=== PATIENT | female | born 1960 | race Caucasian/White ===

== ENCOUNTER 2024-09-28 10:57 | Emergency (ER) | payer MEDICARE, SELFPAY ==
--- NOTE | ~2024-09-28 | XR_ITS ---
EXAMINATION: XR CHEST 2 VIEWS HISTORY: Pain COMPARISON: There are no prior studies for comparison. FINDINGS: PA and lateral views of the chest are submitted. The lungs are expanded and clear. There is no pleural effusion, pneumothorax, or pulmonary vascular congestion. The heart is normal in size. A screw is noted in the proximal right humerus. XR/XR chest 2V IMPRESSION: Clear lungs. Electronically signed by: Pacheco Baker MD 09/28/2024 12:06 PM MARTINA
--- NOTE | 2024-09-28 11:00 | ECG_ITS ---
Test Reason : syncope Blood Pressure : */* mmHG Vent. Rate : 81 BPM Atrial Rate : 81 BPM P-R Int : 156 ms QRS Dur : 90 ms QT Int : 378 ms P-R-T Axes : 63 37 27 degrees QTcB Int : 439 ms Normal sinus rhythm Possible Left atrial enlargement Borderline ECG No previous ECGs available Referred By: Kaleb Way Electronically Signed By: STEPHANIE MOORE
[2024-09-28 11:02] VITALS: BP 167/97; PULSE 96; RESP 18; TEMP 36.7; O2SAT 98; BMI 23.0
--- NOTE | 2024-09-28 11:02 | ED_ITS ---
HPI - General Adult General Chief complaint: Dizziness Stated complaint: Chest pain, low sodium level Time Seen by Provider: 09/28/24 15:56 History of Present Illness ED Provider: Gabby DAS narrative: The patient is a 64-year-old woman who says that starting this morning at around 5 or 06:00 when she got up she has been having episodes of left-sided chest pain. She has also had episodes of feeling dizzy. These symptoms are intermittent. The episodes of chest pain are very brief, in the order of seconds. The feelings of dizziness last longer, possibly several minutes. The patient had similar symptoms for which she was seen at an emergency room in [place] about a month ago. The patient lives in [place] but also has a house in [place] and spends a lot of time in [facility]. Her primary care is through the [facility]. She has a history of hypertension and elevated cholesterol for which he takes medications. She is not a diabetic and she has no history of smoking. The patient has been under a lot of stress recently. Her several months ago and she has been settling the state. She is also looking after her elderly parents both of whom are in her late 80s. She is planning to go to [place] tomorrow to settle part of her estate. The patient reports that she has been sleeping very poorly and often feeling very anxious. She has been under a lot of stress as a result of her 's and also in looking after her elderly parents. Related Data Allergies Allergy/AdvReac Type Severity Reaction Status Date / Time No Known Allergies Allergy Verified 09/28/24 11:05 Review of Systems 2 Review of Systems: Yes all other systems are reviewed and are negative [facility] Social History Social History Smoked in Last 30 Days: No Use of substances other than those prescribed or required for medical reasons: No Advance Directives: No Advance Directives Information Provided: No Physical Exam ED Vital Signs: Vital Signs - 24 hr 09/28/24 11:02 09/28/24 15:37 09/28/24 17:27 Temperature 98.1 F 97.9 F 96.8 F Pulse Rate 96 83 73 Respiratory Rate 18 16 16 Blood Pressure 167/97 H 154/91 H 142/88 H Pulse Oximetry 98 100 98 Oxygen Delivery Method Room Air Room Air Room Air 09/28/24 17:47 Temperature 96.8 F Pulse Rate 73 Respiratory Rate 16 Blood Pressure 142/88 H Pulse Oximetry 98 Oxygen Delivery Method Room Air BMI result Body Mass Index 23.0 Const Other: The patient is a 64-year-old woman who was awake and alert and does not appear in any distress. She looks as though she is ordinarily in quite good health. HENMT Other: Face is symmetrical. Mucous membranes moist. Eyes General: appearance normal, both eyes and all related structures Neck Neck: Yes full ROM and Yes no JVD Resp Effort & Inspection: normal respiratory effort Auscultation: clear to auscultation bilaterally Cardio Rate: regular rate Rhythm: regular rhythm Heart sounds: S1 normal heart sound present and S2 normal heart sound present GI Other: Abdomen is soft and nontender Skin Other: Skin is pale and dry Neuro Other: The patient is awake, alert, pleasant, cooperative. Mental status is normal. Cranial nerves are intact. She moves her extremities normally and appropriately. She is neurologically intact. Extrem Other: No calf swelling or tenderness. No peripheral edema. Course Course Course Narrative: Patient complains of left-sided chest pain waxing and waning starting this morning accompanied by a feeling of lightheaded and dizziness with some nausea EKG labs ordered This is rapid medical exam done in triage pending full exam evaluation and disposition by ER provider Medical Decision Making Medical Decision Making MDM Narrative: The patient is a 64-year-old woman who has fairly nonspecific chest symptoms today as well as dizziness. She apparently had similar symptoms for which she was evaluated at an emergency room in [place] about a month ago. She has a nonischemic EKG. Troponins are undetectable. She describes being under a great deal of stress and describes multiple personal stressors. She is concerned about flying to [place] tomorrow. I think she is safe to fly to [place] tomorrow. She will be discharged. Lab Data 09/28/24 11:27 09/28/24 11:27 Labs: Lab Results 09/28/24 09/28/24 09/28/24 Range/Units 11:27 15:33 16:09 WBC 6.6 (4.8-10.8) X10*3/uL RBC 4.21 (4.20-5.50) X10*6/uL Hgb 12.8 (12.0-16.0) g/dl Hct 37.6 (37.0-47.0) % MCV 89.3 (80.0-98.0) fL MCH 30.4 (27.0-33.0) pg MCHC 34.0 (31.0-35.0) g/dl RDW 13.2 (11.0-16.0) % Plt Count 326 (160-400) X10*3/uL MPV 8.9 L (9.4-12.3) fL Immature Gran % (Auto) 0.5 H (0.0-0.4) % Neut % (Auto) 71.4 (45-73) % Lymph % (Auto) 21.7 (20-40) % [place] % (Auto) 5.6 (2-11) % Eos % (Auto) 0.3 (0-4) % Baso % (Auto) 0.5 (0-2) % Lymph # (Auto) 1.4 (1.2-4.9) X10*3/uL [place] # (Auto) 0.4 (0.1-1.2) X10*3/uL Eos # (Auto) 0.0 (0.0-0.4) X10*3/uL Baso # (Auto) 0.0 (0.0-0.2) X10*3/uL Abs Immat Gran (auto) 0.03 (0.00-0.03) X10*3/uL Absolute Neuts (auto) 4.7 (2.0-8.3) x10*3/uL Absolute Nucleated RBC 0.000 (0.0-0.012) X10*3/uL Nucleated RBC % (auto) 0.0 (0.0-0.2) /100WBC PT 10.2 L (10.9-12.4) SEC INR 0.9 (0.9-1.1) Sodium 133 L (135-145) mmol/L Potassium 4.0 (3.3-5.1) mmol/L Chloride 99 (96-108) mmol/L Carbon Dioxide 28 (22-29) mmol/L Anion Gap 10 L (12-20) BUN 8 L (9-16) mg/dL Creatinine 0.61 (0.5-1.4) mg/dL Estim Creat Clear Calc 72.7 Estimated GFR > 60 Random Glucose 116 H (60-115) mg/dL Calcium 9.3 (8.4-10.2) mg/dL Total Bilirubin 0.3 (0.0-1.0) mg/dL Direct Bilirubin 0.1 (0.0-0.5) mg/dL AST 24 (5-31) U/L ALT 16 (0-31) U/L Alkaline Phosphatase 55 (39-117) U/L Troponin I High Sens < 2.7 < 2.7 (<3.5-17.0) ng/L Total Protein 7.4 (6.5-8.0) g/dL Albumin 4.1 (3.5-5.0) g/dL Influenza Type A (PCR) NEGATIVE (Negative) Influenza Type B (PCR) NEGATIVE (Negative) RSV RNA Qual (PCR) NEGATIVE (Negative) SARS-CoV-2 RNA (RT-PCR) NEGATIVE (Negative) Independent Interpretation I performed an independent interpretation of an: EKG Interpretation: EKG at 11:21 shows normal sinus rhythm at 81 beats per minute. No definite acute ischemic changes. Discharge Plan Discharge Clinical Impression: Chest pain, Dizziness Patient Disposition: Home, Self-Care Additional Instructions: Your testing in the emergency room today is very reassuring. Your sodium level today was 133. The normal range is 135-145. 133 is not significantly low and should not be a cause of concern. You were not showing any evidence of a heart attack or the morning of a heart attack. I believe it is safe for you to travel to [place]. Please plan on following up with your regular doctor's office when you return. Get checked again if you feel significantly worse. Referrals: Tracee Chao FNP [Primary Care Provider] - (Chest pains, dizziness) Interventions: ED Discharge Assessment Last Done: 09/28/24 17:47 Discharge Date/Time: 09/28/24 17:48 Print Language: Welsh
[2024-09-28 11:34] LABS: MANUAL DIFF FLAG NO
[2024-09-28 11:37] LABS: Basophils Percent Auto 0.5 % (0-2); Eosinophils Percent Auto 0.3 % (0-4); Hematocrit 37.6 % (37.0-47.0); Hemoglobin 12.8 g/dl (12.0-16.0); Imm Gran Abs Auto 0.03 X10*3/uL (0.00-0.03); Imm Gran Pct Auto 0.5 % (0.0-0.4); Lymphocytes Absolute Auto 1.4 X10*3/uL (1.2-4.9); Lymphocytes Percent Auto 21.7 % (20-40); Mean Corpuscular Hemoglobin 30.4 pg (27.0-33.0); Mean Corpuscular Volume 89.3 fL (80.0-98.0); Mean Platelet Volume 8.9 fL (9.4-12.3); Monocytes Absolute Auto 0.4 X10*3/uL (0.1-1.2); Monocytes Percent Auto 5.6 % (2-11); Neutrophils Absolute Auto 4.7 x10*3/uL (2.0-8.3); Neutrophils Percent Auto 71.4 % (45-73); Platelet Count 326 X10*3/uL (160-400); Red Blood Count 4.21 X10*6/uL (4.20-5.50); Red Cell Distribution Width 13.2 % (11.0-16.0); White Blood Count 6.6 X10*3/uL (4.8-10.8)
[2024-09-28 11:41] LABS: INTERNATIONAL NORM RATIO 0.9 (0.9-1.1); Prothrombin Time 10.2 SEC (10.9-12.4)
[2024-09-28 12:00] LABS: Alanine Aminotransferase 16 U/L (0-31); Albumin Level 4.1 g/dL (3.5-5.0); Anion Gap 10 (12-20); Aspartate Amino Transferase 24 U/L (5-31); Bilirubin Direct 0.1 mg/dL (0.0-0.5); Bilirubin Total 0.3 mg/dL (0.0-1.0); Blood Urea Nitrogen 8 mg/dL (9-16); Calcium 9.3 mg/dL (8.4-10.2); Carbon Dioxide 28 mmol/L (22-29); Chloride 99 mmol/L (96-108); Creatinine Clr Calc Pharmacy 72.7; Estimated Glomerular Filt Rate > 60; Glucose Random 116 mg/dL (60-115); Sodium 133 mmol/L (135-145); Total Protein 7.4 g/dL (6.5-8.0)
[2024-09-28 12:11] LABS: Alkaline Phosphatase 55 U/L (39-117)
[2024-09-28 14:55] LABS: Troponin-I High Sensitivity < 2.7 ng/L (<3.5-17.0)
[2024-09-28 15:37] VITALS: BP 154/91; PULSE 83; RESP 16; TEMP 36.6; O2SAT 100
--- OUTSIDE RECORDS SUMMARY | 2024-09-28 15:39 | XMS_ITS | Encounter Summary ---
Author Organization [facility] Address [phone] [facility] [place] [address] Care Team Providers Care Geological Scout Name Role Phone Chandni Roger MD Primary Care Provider [phone]- [phone] Encounter Details Date Type Department Care Team (Late st Contact Info) Description 09/07/2022 Procedure Pass [facility], [address] [address] Social History Tobacco Use Types Packs/Day Years Used Date Smoking Tobacco: Never Smokeless Tobacco: Never Alcohol Use Standard Drinks/Week Comments Yes 1 (1 standard drink = 0.6 oz pur e alcohol) daily Sex and Gender Information Value Date Recorded Sex Assigned at Not on file Gender Identity Not on file Sexual Orientation Not on file documented as of this encounter Plan of Treatment Not on file documented as of this encounter Visit Diagnoses Not on filedocumented in this encounter Care Teams Geological Scout Relationship Specialty Start Date End Date Chandni Roger MD PCP - General Family Medicine 03/03/20 documented as of this encounter Additional Source Comments The information contained in this document represents components of the legal health record. It is not the complete legal health record.[facility]
--- OUTSIDE RECORDS SUMMARY | 2024-09-28 15:39 | XMS_ITS | Encounter Summary ---
Author Organization [facility] Address [phone] [facility] [place] [address] Care Team Providers Care Plush Finisher Name Role Phone Chandni Roger MD Primary Care Provider [phone]- [phone] Encounter Details Date Type Department Care Team (Latest Contact Info) Description 09/21/2024 Transcribe Orders Virtual Department [address] [place] [address] Tracee Chao, [address] [address] Screening for osteoporosis (Primary Dx) Social History Tobacco Use Types Packs/Day Years Used Date Smoking Tobacco: Never Smokeless Tobacco: Never Alcohol Use Standard Drinks/Week Comments Yes 1 (1 standard drink = 0.6 oz pur e alcohol) daily Education Answer Date Recorded Are you interested in more education? Not on chapinc[place] e 12/23/2022 Are you concerned about learning? Not on file 12/23/2022 No 12/23/2022 No 12/23/2022 Digital Access Answer Date Recorded No 01/24/2023 No 01/24/2023 No 01/24/2023 Reliable internet access at home? Not on file 01/24/2023 Device with a working camera? Not on file Sex and Gender Information Value Date Recorded Sex Assigned at Not on file Gender Identity Not on file Sexual Orientation Not on file documented as of this encounter Plan of Treatment Scheduled Orders Name Type Priority Associated Diagnoses Orde r Schedule DXA Screening Imaging Routine Screening for osteoporosis Expected: 09/21/2024, Expires: 09/21/2026 documented as of this encounter Visit Diagnoses Diagnosis Screening for osteoporosis- Primary Special screening for osteoporosis documented in this encounter Care Teams Plush Finisher Relationship Specialty Start Date End Date Chandni Roger MD [email or web address] PCP - General Family Medicine 03/03/20 documented as of this encounter Additional Source Comments The information contained in this document represents components of the legal health record. It is not the complete legal health record.[facility]
--- OUTSIDE RECORDS SUMMARY | 2024-09-28 15:39 | XMS_ITS | Encounter Summary ---
Author Organization [facility] Address [phone] [facility] [place] [address] Care Team Providers Care Solo Truck Driver Name Role Phone Chandni Roger MD Primary Care Provider [phone]- [phone] Encounter Details Date Type Department Care Team (Latest Contact Info) Description 09/07/2022 Transcribe Orders Virtual Department [address] [place] [address] Julienne Johnson PA-C [address] [place] [address] [email or web address] Breast screening (Primary Dx) Social History Tobacco Use Types [...] on file documented as of this encounter Results * BI MAMMOGRAM SCREENING WITH TOMOSYNTHESIS WITH CAD (BILATERAL) (10/01/2022 4:26 PM EST) Anatomical Region Laterality Modality Breast Left, Breast Right, Breast Bilateral Bila teral Mammography 10/04/2022 2:37 PM EST Impressions 10/04/2022 3:33 PM EST BILATERAL BREASTS: Benign, no evidence of malignancy. Recommend bilateral annual screening mammography in 12 months. Bi-RADS: BI-RADS CATEGORY: ??2 - Benign finding. DENSITY: ??There are scattered fibroglandular densities. RIGHT RECOMMENDATION DUE DATE: 12 Months Recommendation: Right Mammography Screening LEFT RECOMMENDATION DUE DATE: 12 Months Recommendation: ??Left Mammography Screening Narrative 10/04/2022 3:33 PM EST STUDY: Bilateral screening mammography with tomosynthesis and CAD TECHNIQUE: Bilateral full-field digital screening mammography is obtained and read in conjunction with computer-aided detection. ??Tomosynthesis as well as 2-D C view imaging were obtained. ?? COMPARISON: Comparison made to multiple prior studies dating back to June 2009, the most recent dated February 2020. BILATERAL BREASTS: No new masses, suspicious calcifications or other abnormalities are seen. No significant interval change. Procedure Note Rebecca Ayala MD - 10/04/2022 STUDY: Bilateral screening mammography with tomosynthesis and CAD TECHNIQUE: Bilateral full-field digital screening mammography is obtainedand read in conjunction with computer-aided detection. Tomosynthesis aswell as 2-D C view imaging were obtained. COMPARISON: Comparison made to multiple prior studies dating back 2008, the most recent dated February 2020. BILATERAL BREASTS: No new masses, suspicious calcifications or otherabnormalities are seen. No significant interval change. IMPRESSION: BILATERAL BREASTS: Benign, no evidence of malignancy. Recommend bilateralannual screening mammography in 12 months. Bi-RADS: BI-RADS CATEGORY: 2 - Benign finding. DENSITY: There are scattered fibroglandular densities. RIGHT RECOMMENDATION DUE DATE: 12 Months Recommendation: Right Mammography Screening LEFT RECOMMENDATION DUE DATE: 12 Months Recommendation: Left Mammography Screening Julienne Johnson PA-C [facility] EXAMS documented in this encounter Visit Diagnoses Diagnosis Breast screening- Primary Breast screening, unspecified Breast screening Breast screening, unspecified documented in this encounter Care Teams Solo Truck Driver Relationship Specialty Start Date End Date Chandni Roger MD [email or web address] PCP - General Family Medicine 03/03/20 documented as of this encounter Additional Source Comments The information contained in this document represents components of the legal health record. It is not the complete legal health record.[facility]
--- OUTSIDE RECORDS SUMMARY | 2024-09-28 15:39 | XMS_ITS | Encounter Summary ---
Author Organization [facility] Address [phone] [facility] [place] [address] Care Team Providers Care Endoscopy Technician Name Role Phone Chandni Rgoer MD Primary Care Provider +1- [phone] Encounter Details Date Type Department Care Team ([facility] st Contact Info) Description 08/07/2021 Transcribe Orders Virtual Department [address] [place] [address] [facility] [address] [place] [address] Palpitations (Primary Dx) Social History Tobacco Use Types [...] as of this encounter Visit Diagnoses Diagnosis Palpitations- Primary documented in this encounter Care Teams Endoscopy Technician Relationship Specialty Start Date End Date Chandni Roger MD PCP - General Family Medicine 03/03/20 documented as of this encounter Additional Source Comments The information contained in this document represents components of the legal health record. It is not the complete legal health record.[facility]
--- OUTSIDE RECORDS SUMMARY | 2024-09-28 15:40 | XMS_ITS | Encounter Summary ---
Author Organization [facility] Address [phone] [facility] [employer] [place] [address] Care Team Providers Care Account Receivable Clerk Name Role Phone Chandni Roger MD Primary Care Provider +1- [phone] Chandni Roger MD Primary Care Provider +1- [phone] Encounter Details Date Type Department Care Team (Late st Contact Info) Description 04/16/2019 Ancillary Orders Virtual Department [address] [place] [address] Radha Bowser, [address] [address] [email or web address] Visit for screening mammogram Social History Tobacco Use Types Packs/Day Years Used Date Smoking Tobacco: Never Sex and Gender Information Value Date Recorded Sex Assigned at Not on file Gender Identity Not on file Sexual Orientation Not on file documented as of this encounter Plan of Treatment Not on file documented as of this encounter Results * BI MAMMOGRAM SCREENING WITH TOMOSYNTHESIS WITH CAD (BILATERAL) (03/11/2020 3:10 PM EDT) Anatomical Region Laterality Modality Breast Left, Breast Right, Breast Bilateral Bila teral Mammography 03/11/2020 4:02 PM EDT Impressions 03/11/2020 4:08 PM EDT No mammographic evidence of malignancy. ??In the absence of clinically significant findings routine annual screening mammography would be recommended. BI-RADS CATEGORY: 2 - Benign finding. DENSITY: ??There are scattered fibroglandular densities. POS - [id number] Narrative 03/11/2020 4:08 PM EDT Standard digital full-field 2-D C view and two-plane tomographic imaging was performed and compared with multiple prior studies, most recently 02/18/2017, with utilization of computer-aided detection. The breasts are composed of scattered fibroglandular densities. The stromal markings are essentially unchanged in overall appearance and distribution. No dominant spiculated mass, suspicious clustered microcalcifications, or focal zone of pathologic skin thickening or retraction are noted to have arisen in the interim. Scattered benign-appearing parenchymal and vascular calcifications are present bilaterally. Procedure Note Blanca Vega MD - 03/11/2020 Standard digital full-field 2-D C view and two-plane tomographic imagingwas performed and compared with multiple prior studies, most qcmdhaoj03/23/2017, with utilization of computer-aided detection. The breasts are composed of scattered fibroglandular densities. Thestromal markings are essentially unchanged in overall appearance anddistribution. No dominant spiculated mass, suspicious clusteredmicrocalcifications, or focal zone of pathologic skin thickening orretraction are noted to have arisen in the interim. Scatteredbenign-appearing parenchymal and vascular calcifications are presentbilaterally. IMPRESSION: No mammographic evidence of malignancy. In the absence of clinicallysignificant findings routine annual screening mammography would berecommended. BI-RADS CATEGORY: 2 - Benign finding. DENSITY: There are scattered fibroglandular densities. POS - [id number] Radha Bowser [facility] IMG MG EXAMS documented in this encounter Visit Diagnoses Diagnosis Visit for screening mammogram Visit for screening mammogram documented in this encounter Care Teams Account Receivable Clerk Relationship Specialty Start Date End Date Chandni Roger MD PCP - General 01/02/15 03/02/20 Chandni Roger MD [email or web address] PCP - General Family Medicine 03/03/20 documented as of this encounter Additional Source Comments The information contained in this document represents components of the legal health record. It is not the complete legal health record.[facility]
--- OUTSIDE RECORDS SUMMARY | 2024-09-28 15:40 | XMS_ITS | Encounter Summary ---
Author Organization [facility] Address [address] [place] [address] Care Team Providers Care Refrigeration Repair Supervisor Name Role Phone No, Pcp Primary Care Provider Unavailabl e Reason for Visit * Reason Comments Chest Pain Encounter Details Date Type Department Care Team (Late st Contact Info) Description 09/08/2024 5:46 PM EST - 09/08/2024 8:23 PM EST Emergency [facility] [address] [place] [address] Walter Lewis MD [address] [place] [address] 1st Floor [place] [address] Chest pain, unspecified type (Primary Dx) Discharge Disposition: Home or Self Care Social History Tobacco Use Types Packs/Day Years Used Date Smoking Tobacco: Never Assessed Comments Unknown Sex and Gender Information Value Date Recorded Sex Assigned at Not on file Legal Sex Female 3:01 PM EST Gender Identity Not on file Sexual Orientation Not on file documented as of this encounter Last Filed Vital Signs Vital Sign Reading Time Taken Comments Blood Pressure 156/78 09/08/2024 7:43 PM EST Pulse 85 09/08/2024 7:43 PM EST Temperature 36.2 ??C (97.1 ??F) 09/08/2024 7:43 PM ES T Respiratory Rate 16 09/08/2024 7:43 PM EST Oxygen Saturation 98% 09/08/2024 7:43 PM EST Inhaled Oxygen Concentration - - Weight - - Height - - Body Mass Index - - documented in this encounter Discharge Instructions * Discharge Instructions* NILE Viveros - 09/08/2024 7:52 PM EST Is unclear what is causing your chest pain today. Your testing was negative. If you develop return of chest pain or have difficulty breathing or other concerning symptoms return to the emergency department otherwise follow-up with your primary care doctor. * Attachments The following attachments cannot be sent through Care Everywhere. * Nonspecific Chest Pain Adult [id number] (Peruvian) documented in this encounter ED Notes Only the most recent of 3 notes is shown. * Alka Valencia - 09/08/2024 7:30 PM EST Report given to LAZARA Valencia 09/08/241929 documented in this encounter Plan of Treatment Not on file documented as of this encounter Procedures Procedure Name Priority Date/Time Associated Diagnosis Comments HS-TNI (2 HR WITH 2 HR DELTA) STAT 09/08/2024 7:09 PM EST D DIMER DEEP VEIN THROMB LEVEL STAT 09/08/2024 6:32 PM EST HS-TROPONIN I STAT 09/08/2024 3:21 PM EST MAGNESIUM LEVEL, BLOOD STAT 09/08/2024 3:21 PM EST BASIC METABOLIC PANEL STAT 09/08/2024 3:21 PM EST CBC WITH DIFF STAT 09/08/2024 3:21 PM EST PHOSPHORUS LEVEL STAT 09/08/2024 3:21 PM EST ECG 12-LEAD STAT 09/08/2024 1:02 PM EST documented in this encounter Results * hs-TNI (2 hr with 2 hr DELTA) (09/08/2024 7:09 PM EST) [facility] hs-TNI 2 hr <3 3 - 14 ng/L 09/08/2024 7:49 PM EST [facility] Blood 09/08/2024 7:09 PM EST 09/08/2024 7:16 PM EST us Minesh DOWD LAB BLOOD ORDERABLES Final Result [facility] [address] [place] [address] [place] [address] * D DIMER DEEP VEIN THROMB LEVEL (09/08/2024 6:32 PM EST) [facility] D Dimer Deep Vein Thromb Level 153 0 - 325 ng/mL D-DU 09/08/2024 7:34 PM [facility] Comment: This test has been validated as being useful in the exclusion of venous thromboembolism (VTE). A cutoff value of 230 ng/ml is suggested. Results below this cutoff can be used in conjunction with clinical evaluation, such as the Wells Score, in assessing the need for further investigation for VTE. Plasma D-dimer levels are known to increase with age. Patients over 50 years can be considered for VTE/PE exclusion if their measured D-dimer result is less than their chronological age multiplied by 5, expressed in ng/mL. For example, a 72 year old patient could be considered for VTE/PE exclusion if the D-dimer result is less than 360 ng/mL (72 x 5 = 360). Blood 09/08/2024 6:32 PM EST 09/08/2024 7:16 PM EST us Minesh DOWD LAB BLOOD ORDERABLES Final Result [facility] [address] [place] [id number] [place] [address] [place] [id number] * Phosphorus Level (09/08/2024 3:21 PM EST) Phosphorus 2.7 2.4 - 4.8 MG/DL 09/08/2024 4:06 PM EST [facility] Blood 09/08/2024 3:21 PM EST 09/08/2024 3:38 PM EST us Walter Lewis MD LAB BLOOD ORDERABLES Final Result Performing Organization Address City/[facility]/ZIP Co de Phone Number [facility] [address] [place] [address] [place] [address] * Magnesium Level, Blood (09/08/2024 3:21 PM EST) Magnesium Level, Blood 1.7 1.3 - 1.9 mEq/L 09/08/2024 4:06 PM EST [facility] Blood 09/08/2024 3:2 1 PM EST 09/08/2024 3:38 PM EST us Walter Lewis MD LAB BLOOD ORDERABLES Final Result Performing Organization Address [facility]/RUST Co de Phone Number [facility] [address] [place] [address] [place] [address] * hs-Troponin I (09/08/2024 3:21 PM EST) hs-Troponin I <3 3 - 14 ng/L 09/08/2024 4:11 PM EST [facility] 09/08/2024 3:21 PM EST 09/08/2024 3:38 PM EST us Walter Lewis MD LAB BLOOD ORDERABLES Final Result Performing Organization Address City/[facility]/ZIP Co de Phone Number [facility] [address] [place] [address] [place] [address] * (ABNORMAL) CBC WITH DIFF (09/08/2024 3:21 PM EST) WBC 6.6 4.2 - 10.0 [id number]/L 09/08/2024 3:50 PM [facility] RBC 4.23 3.80 - 5.10 [id number]/L 09/08/2024 3:50 PM [facility] Hemoglobin 12.8 11.2 - 14.9 g/dL 09/08/2024 3:50 PM [facility] Hematocrit 37.8 36.0 - 48.0 % 09/08/2024 3:50 PM [facility] MCV 89.4 85.2 - 100.2 fL 09/08/2024 3:50 PM [facility] MCH 30.3 27.0 - 32.4 pg 09/08/2024 3:50 PM [facility] MCHC 33.9 29.5 - 34.2 g/dL 09/08/2024 3:50 PM [facility] RDW 13.1 11.8 - 14.4 % 09/08/2024 3:50 PM [facility] Platelets 328 168 - 382 r40waq9/L 09/08/2024 3:50 PM [facility] MPV 9.0(L) 9.6 - 12.5 fL 09/08/2024 3:50 PM [facility] NRBC % 0.0 -1.0 - 0.0 % 09/08/2024 3:50 PM [facility] NRBC (absolute) 0.0 [id number]/L 3:50 PM [facility] Immature Granulocytes % 0.3 % 09/08/2024 3:50 PM [facility] Immature Granulocytes (absolute) 0.0 0.0 - 0.1 b23xjr2/L 09/08/2024 3:50 PM [facility] Seg Neutrophil % 58.1 % 09/08/19 3:50 PM [facility] Seg Neutrophil (absolute) 3.8 1.9 - 6.7 a95trp3/L 09/08/2024 3:50 PM [facility] Lymphocyte % 35.2 % 09/08/2024 3:50 PM [facility] Lymphocyte (absolute) 2.3 1.0 - 3.3 u90vjv2/L 09/08/2024 3:50 PM [facility] Monocyte % 5.5 % 09/08/2024 3:50 PM [facility] Monocyte (absolute) 0.4 0.3 - 0.9 v10fzv0/L 09/08/2024 3:50 PM [facility] Eosinophil % 0.6 % 09/08/2024 3:50 PM [facility] Eosinophil (absolute) 0.0 0.0 - 0.4 z95fci2/L 09/08/2024 3:50 PM [facility] Basophil % 0.3 % 09/08/2024 3:50 PM [facility] Basophil (absolute) 0.0 0.0 - 0.1 l55rpt0/L 09/08/2024 3:50 PM [facility] 09/08/2024 3:21 PM EST 09/08/2024 3:38 PM EST us Walter Lewis MD LAB BLOOD ORDERABLES Final Result [facility] [address] Laboratory [address] [place] [address] * (ABNORMAL) Basic Metabolic Panel (09/08/2024 3:21 PM EST) Glucose 112(H) 67 - 99 MG/DL 09/08/2024 4:06 PM [facility] BUN 10 6 - 24 MG/DL 09/08/2024 4:06 PM [facility] Creat Level 0.53 0.44 - 1.03 MG/DL 09/08/2024 4:06 PM [facility] eGFR 102 >90 mL/min/1.7 3m exp2 09/08/2024 4:06 PM [facility] Comment:Calculated using the CKD-epi 2020 race-free equation. BUN Creatinine Ratio 19 09/08/2024 4:06 PM [facility] Sodium 129(L) 135 - 145 MEQ/L 09/08/2024 4:06 PM [facility] Potassium 4.0 3.6 - 5.1 MEQ/L 09/08/2024 4:06 PM [facility] Chloride 97(L) 98 - 110 MEQ/L 09/08/2024 4:06 PM [facility] CO2 23 20 - 29 MEQ/L 09/08/2024 4:06 PM [facility] Anion Gap 9 3 - 13 09/08/2024 4:06 PM [facility] Calcium 9.1 8.4 - 10.2 MG/DL 09/08/2024 4:06 PM [facility] Blood 09/08/2024 3:21 PM EST 09/08/2024 3:38 PM EST Walter Lewis MD LAB BLOOD ORDERABLES Final Result Performing Organization Address City/State/RUST Co de Phone Number [facility] [address] [place] [address] [place] [address] * ECG 12 Lead (09/08/2024 1:02 PM EST) RR Interval 652 ms [facility] Atrial Rate 93 ms [facility] P-R Interval 157 ms [facility] P Duration 123 ms [facility] P Horizontal [place] -14 deg [facility] P Front [place] 67 deg [facility] QRS [place] 503 ms [facility] QRSD Interval 106 ms [facility] QT Interval 372 ms [facility] QTcB 461 ms [facility] QTcF 429 ms [facility] QRS Horizontal [place] -10 deg [facility] QRS [place] 62 deg [facility] I-40 Horizontal [place] 25 deg [facility] I-40 Front [place] 19 deg [facility] C[facility] T-40 Horizontal [place] -34 deg [facility] T-40 Front [place] 122 deg [facility] C[facility] T Horizontal [place] -20 deg [facility] T Wave [place] 20 deg [facility] S-T Horizontal [place] -39 deg [facility] S-T Front [place] 57 deg [facility] ECG Impression - ABNORMAL ECG - [facility] 09/08/2024 Impressions [facility] - 09/11/2024 1:25 AM EST SR Sinus rhythm normal P axis, V-rate 50-99 T1AN Nonspecific T abnormalities, anterior leads T <-0.10mV, V2-V4 Narrative Procedure Note Monica Yun MD - 09/11/2024 SR Sinus rhythm normal P axis, V-rate 50-99 T1AN Nonspecific T abnormalities, anterior leads T <-0.10mV, V2-V4 us Order Ed Protocol ECG ORDERABLES Edited Result - Final [facility] documented in this encounter Visit Diagnoses Diagnosis Chest pain, unspecified type- Primary documented in this encounter Administered Medications Inactive Administered Medications - up to 3 most recent administrations Medication Order MAR Action Action Date Dose Rate Site lactated ringers bolus 1,000 mL 1,000 mL, Intravenous, Administer over 30 Minutes, at 2,000 mL/hr, Once, On 09/08/24 at 1530, 1 dose New Bag 09/08/2024 7:10 PM EST 1,000 mL 200 0 mL/hr sodium chloride flush 3 mL 3 mL, intra-catheter, As needed, line care, Starting on 09/08/24 at 1517, Until 09/09/24 at 0223 documented in this encounter Active and Recently Administered Medications Times are shown in EST. Scheduled Medication Order 09/06/2024 09/07/2024 09/08/2024 lactated ringers bolus 1,000 mL (COMPLETED) 1,000 mL, Intravenous, Administer over 30 Minutes, at 2,000 mL/hr, Once, On 09/08/24 at 1530, 1 dose 1910 (New Bag - Prov ider: Alka Valencia)2015 (Stopped - Provider: Audrey Duran RN) ondansetron (ZOFRAN) injection 4 mg 4 mg, Intravenous, Once, On 09/08/24 at 1530, 1 dose, For IM use, administer undiluted; for IV push, undiluted over 2 to 5 minutes; for IV infusion, dilute and administer over 15 to 30 minutes. 2014 (Not Given - Pr ovider: Audrey Duran RN - Reason: Patient refused ordered dose) PRN Medication Order 09/06/2024 09/07/2024 09/08/2024 sodium chloride flush 3 mL(Linked Group 1) 3 mL, intra-catheter, As needed, line care, Starting on 09/08/24 at 1517, Until 09/09/24 at 0223 Linked Groups Order Group 1: Insert peripheral IV (COMPLETED) STAT, Once, On 09/08/24 at 1518, For 1 occurrence And Maintain IV access (CANCELED) STAT, Until discontinued, Starting on 09/08/24 at 1518, Until Specified And Saline lock IV (CANCELED) STAT, Once, On 09/08/24 at 1518, For 1 occurrence, INT once pt tolerating PO and with adequate urine output (300cc q8 hours minimum) And sodium chloride flush 3 mLJump to med 3 mL, intra-catheter, As needed, line care, Starting on 09/08/24 at 1517, Until 09/09/24 at 0223 documented in this encounter Care Teams Refrigeration Repair Supervisor Relationship Specialty Start Date End Date No, MD Pricila No Address No [place] [address] PCP - General Internal Medicine 09/08/24 documented as of this encounter
--- OUTSIDE RECORDS SUMMARY | 2024-09-28 15:40 | XMS_ITS | Encounter Summary ---
Author Organization [employer] Address [address] [place] [address] 7 [place] [address] Care Team Providers Care Director Of Music Therapy Name Role Phone Julienne Johnson PA-C Primary Care Provider Unav ailable Reason for Visit * Reason Onset Date Comments Med Refill 04/19/2023 Encounter Details Date Type Department Care Team ([facility] st Contact Info) Description 04/19/2023 Refill Car[facility] [address] [place] [address] [facility] [address] [place] [address] Essential (primary) hypertension Social History Tobacco Use Types Packs/Day Years Used Date Smoking Tobacco: Never Smokeless Tobacco: Never Alcohol Use Standard Drinks/Week Comments Not Asked 0 (1 standard drink = 0.6 oz pur e alcohol) Wine 1 Comments Unknown Sex and Gender Information Value Date Recorded Sex Assigned at Female 09/02/2022 8:53 AM EST Legal Sex Female 8:35 PM EDT Gender Identity Female 09/02/2022 8:53 AM EST Sexual Orientation Straight 09/22/2022 1: 26 PM EST documented as of this encounter Plan of Treatment Not on file documented as of this encounter Visit Diagnoses Diagnosis Essential (primary) hypertension Unspecified essential hypertension documented in this encounter Care Teams Director Of Music Therapy Relationship Specialty Start Date End Date Julienne Johnson PA-C PCP - General Family Medicine 09/03/22 documented as of this encounter
--- OUTSIDE RECORDS SUMMARY | 2024-09-28 15:40 | XMS_ITS | Encounter Summary ---
Author Organization [facility] Address [phone] [facility] [employer] [place] [address] Care Team Providers Care Drain Cleaner Name Role Phone Chandni Roger MD Primary Care Provider [phone] Chandni Roger MD Unavailable [phone] Chandni Roger MD Primary Care Provider Encounter Details Date Type Department Care Team (Late st Contact Info) Description 04/07/2018 Ancillary Orders Virtual Department [address] [place] [address] Annette Ponce, SQL BI DEVELOPER [address] [place] [address] Breast screening Social History Tobacco Use Types Packs/Day Years Used Date Smoking Tobacco: Never Sex and Gender Information Value Date Recorded Sex Assigned at Not on file Gender Identity Not on file Sexual Orientation Not on file documented as of this encounter Plan of Treatment Not on file documented as of this encounter Visit Diagnoses Diagnosis Breast screening Breast screening, unspecified documented in this encounter Care Teams Drain Cleaner Relationship Specialty Start Date End Date Chandni Roger MD PCP - General 01/02/15 03/02/20 Chandni Roger MD [email or web address] PCP - General Family Medicine 03/03/20 Chandni Roger MD [address] [place] [phone] [email or web address] Insurance Assigned Provider 12/30/18 03/03/19 documented as of this encounter Additional Source Comments The information contained in this document represents components of the legal health record. It is not the complete legal health record.[facility]
--- OUTSIDE RECORDS SUMMARY | 2024-09-28 15:41 | XMS_ITS | Encounter Summary ---
Author Organization [employer] Address [address] [place] [address] 7 [place] [address] Care Team Providers Care Web Consultant Name Role Phone Julienne Johnson PA-C Primary Care Provider Unav ailable Reason for Visit * Reason Onset Date Comments pain in left side chest area 09/28/2024 Nausea 09/28/2024 Dizziness 09/28/2024 Encounter Details Date Type Department Care Team ([facility] st Contact Info) Description 09/28/2024 Telephone [facility] MEDICAL [address] [place] [id number] Julienne Johnson PA-C pain in left side chest area; Nausea; Dizziness Social History Tobacco Use Types Packs/Day Years Used Date Smoking Tobacco: Never Smokeless Tobacco: Never Alcohol Use Standard Drinks/Week Comments Not Asked 0 (1 standard drink = 0.6 oz pure alcohol) Wine, a couple of glasses a week Depression Answer Date Recorded Patient Health Questionnaire-9 Score 2 12/30/2023 Patient Health Questionnaire-9 Score 2 12/30/2023 Last PHQ-9: Questionnaire Data Not on file 0 12/30/2023 Housing Stability Answer Date Recorded What is your housing situation today? I have lopez foster 09/21/[address] you li ve. Do you have problems with any of the following? None of the above 09/21/2024 Food Insecurity Answer Date Recorded Within the past 12 months, y ou worried that your food would run out before you got money to buy more: Never True 09/21/2024 Within the past 12 months,th e food you bought just didn't last and you didn't have enough money to get more: Never True Transportation Answer Date Recorded In the past 12 months, has l ack of transportation kept you from medical appts, meetings, work or from getting things needed for daily living? No 09/21/2024 Utilities Answer Date Recorded In the past 12 months, has t he electric, gas, oil or water company threatened to shut off services in your home? No 09/21/2024 Depression Answer Date Recorded Patient Health Questionnaire-2 Score 0 09/21/2024 Internet Access Answer Date Recorded Internet Access Q1 Yes 09/21/2024 Internet Access Q2 Not on file 09/21/2024 Comments Unknown Sex and Gender Information Value Date Recorded Sex Assigned at Female 09/02/2022 8:53 AM EST Legal Sex Female 8:35 PM EDT Gender Identity Female 09/02/2022 8:53 AM EST Sexual Orientation Straight 09/22/2022 1: 26 PM EST documented as of this encounter Miscellaneous Notes * Telephone Encounter - Soco Milligan RN - 09/28/2024 10:28 AM EST Placed call to patient who reports that since about 05:00 today 09/28 she has been having shooting pain on the lateral side of her left breast. It has been occurring every 20 minutes, and lasts for about one second at a time. Patient also reports that she is not feeling well- nauseous, SOB, lightheaded. Advised ED for immediate evaluation, patient in agreement. She is on her way to [facility]. To records. * Telephone Encounter - Kirsty East - 09/28/2024 10:09 AM EST Patient called. Patient had her labs done today but is not feeling well Patient reports Nausea Lightheaded Shooting pain on left side chest area documented in this encounter Plan of Treatment Not on file documented as of this encounter Visit Diagnoses Not on filedocumented in this encounter Additional Health Concerns Assessment Noted Time PHQ-9 Depression Total Score: 2 12/30/19 24 12:57 PM EDT documented as of this encounter Care Teams Web Consultant Relationship Specialty Start Date End Date Julienne Johnson PA-C PCP - General Family Medicine 09/03/22 documented as of this encounter
--- OUTSIDE RECORDS SUMMARY | 2024-09-28 15:41 | XMS_ITS | Encounter Summary ---
Author Organization [employer] Address [address] [place] [address] [address] [place] [address] Care Team Providers Care Administrative Specialist Name Role Phone Julienne Johnson PA-C Primary Care Provider Unav ailable Encounter Details Date Type Department Care Team (Late st Contact Info) Description 12/23/2023 Orders Only [facility] MEDICAL [address] [place] [id number] Julienne Johnson PA-C Right hip pain Social History Tobacco Use Types Packs/Day Years [...] Procedure Name Priority Date/Time Associated Diagnosis Comments XR HIP RIGHT 2+ VIEWS W AP PELVIS Routine 09/06/2023 10:41 AM EST AMB REFERRAL TO ORTHOPAEDICS Routine 09/06/2023 Right hip pain documented in this encounter Results * XR HIP RIGHT 2+ VIEWS W AP PELVIS (09/06/2023 10:41 AM EST) Anatomical Region Laterality Modality Lower Extremities, Hip Bilateral Radiograp hic Imaging Julienne Johnson PA-C IMG XR PROCEDURES Final Res ult * Referral to Orthopaedics (09/06/2023) us Julienne Johnson PA-C OUTPATIENT REFERRAL ORDERAB LES Final Result documented in this encounter Visit Diagnoses Diagnosis Right hip pain Pain in joint, pelvic region and thigh documented in this encounter Care Teams Administrative Specialist Relationship Specialty Start Date End Date Julienne Johnson PA-C PCP - General Family Medicine 09/03/22 documented as of this encounter
--- OUTSIDE RECORDS SUMMARY | 2024-09-28 15:41 | XMS_ITS | Referral Summary ---
Author Organization [facility] Address [address] [place] [address] Care Team Providers Care Apigee Developer Name Role Phone Angela Gallegos Primary Care Provider [phone] Allergies No known active allergies Medications dilTIAZem CD (CARDIZEM CD) 180 mg 24 hr capsule Take 180 mg by mouth once a day. 1 Active lisinopriL (PRINIVIL,ZESTR IL) 10 mg tablet Take 10 mg by mouth daily. Active simvastatin (ZOCOR) 20 mg tablet 20 mg. 1 Active polyethylene glycol (GoLYTELY) solutionIndicat ions:Colon cancer screening Take according to instructions provided by physician. 4000 mL 2 Active meloxicam (MOBIC) 15 mg tablet Take 1 tablet (15 mg total) by mouth once a day. 60 tablet 1 4 Active diclofenac (VOLTAREN) 1% gel Apply 4 g topically to the affected area 4 times a day as needed (for lateral hip pain). Use as directed. 100 g 1 4 Active Active Problems Problem Noted Date Diagnosed Date Personal history of colon cancer 09/21/2021 Personal history of colon cancer 09/21/2021 Social History Tobacco Use Types Packs/Day Years Used Date Smoking Tobacco: Never Smokeless Tobacco: Never Alcohol Use Standard Drinks/Week Comments Yes 0 (1 standard drink = 0.6 oz pur e alcohol) Social Comments No Sex and Gender Information Value Date Recorded Sex Assigned at Female 09/04/2023 7:26 PM EST Legal Sex Female 11:49 AM EST Gender Identity Female 09/04/2023 7:26 PM EST Sexual Orientation Straight 09/04/2023 7: 26 PM EST Occupation Industry Job Start Date Job End Date [employer]IVE [employer] Not on file Not on file No t on file Last Filed Vital Signs Vital Sign Reading Time Taken Comments Blood Pressure 150/90 01/05/2023 2:45 PM EDT Pulse 72 01/05/2023 2:30 PM EDT Temperature 36.7 ??C (98.1 ??F) 01/05/2023 2:30 PM ED T Respiratory Rate 16 01/05/2023 2:45 PM EDT Oxygen Saturation 98% 01/05/2023 2:45 PM EDT Inhaled Oxygen Concentration - - Weight 70.1 kg (154 lb 9.6 oz) 09/06/2023 9:22 A M EST Height 157.5 cm (5' 2 ) 09/06/2023 9:22 AM EST Body Mass Index 28.28 09/06/2023 9:22 AM EST Plan of Treatment Not on file Procedures * Due to [place] [employer] law, this organization might not be sharing negative HIV tests. Procedure Name Priority Date/Time Associated Diagnosis Comments COLONOSCOPY 01/05/2023 from Last 3 Months or Most Recently Relevant to Health Maintenance Results * Due to [place] [employer] law, this organization might not be sharing negative HIV tests. * COLONOSCOPY (01/05/2023) Narrative Procedure Note Jerardo Corrigan MD PhD - 01/05/2023 1:47 PM EDT [facility] - [address] [facility] Patient Name: Moon Pierre Procedure Date: 01/05/2023 1:47 PM Date of : 1960 Admit Type: Outpatient Age: 62 Room: [facility] 01 Gender: Female Note Status: Addendum Attending MD: Anjum Corrigan MD Procedure: Colonoscopy Indications: High risk colon cancer surveillance: Personal history of coloncancer Providers: Anjum Corrigan MD Referring MD: Requesting Provider: Angela Gallegos Medicines: Propofol per Anesthesia Complications: No immediate complications. Procedure: After I obtained informed consent, the scope was passed under direct vision. Throughout theprocedure, the patient's blood pressure, pulse, and oxygen saturations were monitored continuously. The Colonoscope was introduced through the anus and advanced to the cecum, identified by appendiceal orifice and ileocecal valve. The colonoscopy was performed without difficulty. The patient tolerated the procedure well. The quality of the bowel preparation was good. Findings: Multiple small and large-mouthed diverticula were found in the entire colon. Three sessile polyps were found in the rectum, sigmoid colon and ascending colon. The polyps were 3 to 10 mm in size. The exam was otherwise normal throughout the examined colon. Impression: - Three 3 to 10 mm polyps in the rectum, in the sigmoid colon and in the ascending colon. - No specimens collected. Recommendation: - Dr. Norman will telephone with pathology results next tuesday. - Repeat colonoscopy in 3 years for surveillance. Anjum Corrigan MD 01/05/2023 2:27:27 PM This report has been signed electronically. Number of Addenda: 1 Note Initiated On: 01/05/2023 1:47 PM Estimated Blood Loss: Estimated blood loss: none. Addendum Number: 1 Addendum Date: 01/10/2023 12:12:03 PM polyps were removed by cold snare. excision and retrieval werecomplete Anjum Corrigan MD 01/10/2023 12:12:30 PM This report has been signed electronically. us Jerardo Corrigan MD PhD [employer] PROCEDURES Final Result from Last 3 Months or Most Recently Relevant to Health Maintenance Insurance [employer] PPO/EPO/IND Care Teams Apigee Developer Relationship Specialty Start Date End Date Frederic, [place] PCP - General 09/21/21
--- OUTSIDE RECORDS SUMMARY | 2024-09-28 15:41 | XMS_ITS | Encounter Summary ---
Author Organization [employer] Address [address] [place] [address] Care Team Providers Care Dowel Maker Name Role Phone Julienne Johnson PA-C Primary Care Provider Unav ailable Reason for Referral * Imaging (Routine) - Pending Review Specialty Diagnoses / Procedures Referred By Fredy ewing Referred To Contact Radiology Diagnoses Screening for osteoporosis Procedures XR bone density w SPECT lumbar Tracee Chao FNP [address] [place] [address] Phone: tel: fax: [facility] [address] Phone: tel: fax: Referral ID Status Reason Start Date Expiration Date V isits Requested Visits Authorized [id number] Pending Review 09/21/2024 09/21/2025 1 1 Reason for Visit * Reason Comments Welcome To Medicare Pt here today for th eir annual Medicare wellness visit Encounter Details Date Type Department Care Team (Late st Contact Info) Description 09/21/2024 9:00 AM EST Office Visit [facility] [address] [place] [address] Tracee Chao FNP [address] [place] [address] Medicare annual wellness visit, initial (Primary Dx); Supraventricular tachycardia (CMS/HCC); 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; Screening for osteoporosis; Primary hypertension; History of colon cancer; Mixed hyperlipidemia; Anxiety; Prediabetes Social History Tobacco Use Types Packs/Day Years [...] PM EST documented as of this encounter Last Filed Vital Signs Vital Sign Reading Time Taken Comments Blood Pressure 110/70 09/21/2024 9:03 AM EST Pulse 80 09/21/2024 9:03 AM EST Temperature 36.6 ??C (97.8 ??F) 09/21/2024 9:03 AM ES T Respiratory Rate 16 09/21/2024 9:03 AM EST Oxygen Saturation - - Inhaled Oxygen Concentration - - Weight 54.8 kg (120 lb 12.8 oz) 09/21/2024 9:03 AM EST Height 158.4 cm (5' 2.38 ) 09/21/2024 9:03 AM ES T Body Mass Index 21.83 09/21/2024 9:03 AM EST documented in this encounter Progress Notes * Tracee Zhanna, MARY - 09/21/2024 9:00 AM EST Subjective Moon Pierre is a 64 y.o. female who presents for Initial Welcome to Medicare visit. Chronic condition review: Patient Active Problem List Diagnosis Primary hypertension Hyperlipidemia Supraventricular tachycardia (CMS/HCC) History of colon cancer Anxiety Prediabetes SVT- stable, no reoccurrences, last seen by cardiology many years ago HTN- Well controlled, has had weight loss, taking 20mg lisinopril, looking to decrease HLD: due for cholesterol check, currently stable on simvastatin 20mg without side effects Prediabetes: last A1c this summer 5.9%, well controlled with dietary and lifestyle changes, limiting carb intake, weight loss, increasing exercise Anxiety: experiences situational anxiety, well controlled without medication at this time History of colon cancer: last colonoscopy 2022, on 3 year plan, next due 2025, no symptoms at this time Health Maintenance Topic Date Due Mammogram 10/01/2024 Influenza Vaccine (1) 08/27/2025 (Originally 04/29/2024) Pneumococcal Vaccine: 65+ Years (1 of 1 - PCV) 09/21/2025 (Originally 2024) Zoster Vaccines (2 of 2) 09/21/2025 (Originally 07/19/2020) COVID-19 Vaccine (5 - 2023- season) 2025 (Originally 04/29/2024) Diabetes: Hemoglobin A1C 03/06/2025 Depression Screening 09/21/2025 Tobacco Screening 09/21/2025 SDOH Screening 09/21/2025 Alcohol/Substance Use Screening 09/21/2025 Cervical Cancer Screening 09/03/2027 Lipid Panel 03/06/2029 DTaP/Tdap/Td Vaccines (2 - Td or Tdap) 04/13/2029 RSV Patients and Patients Aged 60 years or older (1 - 1-dose 75+ series) 2034 Hepatitis C Screening Completed RSV under 20 months Aged Out HIB Vaccines Aged Out Hepatitis B Vaccines Aged Out IPV Vaccines Aged Out Hepatitis A Vaccines Aged Out Meningococcal Vaccine Aged Out Rotavirus Vaccines Aged Out HPV Vaccines Aged Out Colorectal Cancer Screening Discontinued Current Outpatient Medications Medication Sig Dispense Refill dilTIAZem CD (Cardizem CD) 180 MG 24 hr capsule TAKE 1 CAPSULE BY MOUTH IN THE MORNING 90 capsule 1 simvastatin (Zocor) 20 MG tablet Take 1 tablet (20 mg) by mouth at bedtime. 90 tablet 2 lisinopril 10 MG tablet Take 1 tablet (10 mg) by mouth Once per day. 90 tablet 1 No current facility-administered medications for this visit. PAST MEDICAL, SURGICAL, SOCIAL AND FAMILY HISTORY: Reviewed and updated Family History Problem Relation Name Age of Onset Other (pacemaker) Mother Heart disease Mother Prostate cancer Brother Colon cancer Maternal Grandmother Past Surgical History: Procedure Laterality Date COLECTOMY 2009 Dr. Graves Past Medical History: Diagnosis Date Elevated cholesterol H/O colonoscopy 2016 Dr. Kurtz repeat 5 years HTN (hypertension) Hx of colonoscopy 12/2009 Dr. Kurtz Migraines Supraventricular tachycardia (CMS/HCC) Health Risk Assessment Medicare Annual Wellness Visit Health Risk Assessment Questionnaire completed, scanned into chart. Current specialty providers/suppliers: see scanned documents MiniCog- deferred, no memory concerns at this time Vision Screening Right eye Left eye Both eyes Without correction fail fail fail With correction Comments: Pt has corrective lenses, was seen by her eye 03/2024, states no changes in her prescription. Patient Health Questionnaire-2 Score: 0 Fall Risk: see scanned documents Advanced Care Directives, MOLST, DPOA: completed but not on file, patient will bring in for file ROS: Ten system review negative, with the exception of those noted in the HPI and A&P PHYSICAL EXAMINATION: GENERAL: Well-appearing female in no acute distress. HEENT: No scleral icterus. Moist mucous membranes. No nasal discharge. PULMONARY: Breathing comfortably on room air. CTAB CARDIAC: RRR MUSCULOSKELETAL: Gait appropriate and symmetric. EXTREMITIES: Warm and well perfused. NEUROLOGIC: Motor function grossly intact. ASSESSMENT AND PLAN: Assessment - History of supraventricular tachycardia (SVT) with no recent recurrences, only occasional flutters. - History of colon cancer, currently on a three-year surveillance plan. - Prediabetes with a recent A1C of 5.9 in February 2024. Plan - Reduce lisinopril dosage to 10 mg. Discontinue the current 20 mg dosage and send a new prescription for 10 mg. Monitor blood pressure at home to ensure stability with the new dosage. - Order laboratory tests to assess electrolyte balance and cholesterol levels. These tests will help determine if any adjustments to current medications are necessary. - Schedule a bone density scan to evaluate bone health, particularly focusing on the hips, lower spine, and femoral heads. This will help assess the risk of osteopenia or osteoporosis. - Plan to discuss potential changes to cholesterol medication based on the upcoming lab results. Consideration will be given to the patient's recent weight loss and changes in lifestyle habits. - Ensure the patient receives a follow-up call with the results of the lab tests, including cholesterol levels, to discuss any necessary adjustments or further actions. Prescription - Lisinopril 10 mg, daily Appointments - Bone density scan to be scheduled at [facility] before the end of September 2024. Problem List Items Addressed This Visit Primary hypertension Overview Rx lisinopril, BP at home has been normal 120-130/80-90 Hyperlipidemia Overview Lipid panel 08/2022 wnl. Rx statin Component Ref Range & Units 11 mo ago Cholesterol, Total (<200) MG/DL 195 Triglyceride (mg/dL) in Serum/Plasma (<150) MG/DL 47 HDL Cholesterol (>39) MG/DL 91 LDL Cholesterol, Calculated (0-130) MG/DL 95 Non HDL Chol. (LDL+VLDL) (<160) MG/DL 104 Supraventricular tachycardia (CMS/HCC) Overview Was put on cardizem by cardiology in [place] many years ago. No reoccurrances, comfortable with whatto look out for History of colon cancer Overview Diagnosed 2009 s/p colon resection. No chemo radiation. Last colonoscopy 12/2022 q3y Anxiety Overview Feels very anxious about health, worried about dying. Has strong fam hx of cancer. Does not follow therapist. Recommended services. 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 Relevant Orders Lipid Panel, Standard Comprehensive metabolic panel Screening for osteoporosis Relevant Orders XR bone density w SPECT lumbar Medications Discontinued During This Encounter Medication Reason hydrOXYzine HCl (Atarax) 25 MG tablet Other lisinopril 20 MG tablet lisinopril 10 MG tablet documented in this encounter Plan of Treatment Scheduled Orders Name Type Priority Associated Diagnoses Orde r Schedule XR bone density w SPECT lumbar Imaging Routine Screening for osteoporosis Expected: 09/21/2024 (Approximate), Expires: 09/21/2025 documented as of this encounter Procedures Procedure Name Priority Date/Time Associated Diagnosis Comments LIPID PANEL, STANDARD Routine 09/21/2024 10:02 AM EST correction use of drug COMPREHENSIVE METABOLIC PANEL Routine 09/21/2024 10:02 AM EST 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 documented in this encounter Results * (ABNORMAL) Comprehensive metabolic panel (09/21/2024 10:02 AM EST) Glucose 94 70 - 99 mg/dL [facility] Urea Nitrogen (BUN) 11 8 - 27 mg/dL [facility] Creatinine, Serum 0.61 0.57 - 1.00 mg/dL [facility] 1 eGFR 99 >59 mL/min/1.7 3 [facility] 1 BUN/Creatinine Ratio 18 12 - 28 [facility] 1 Sodium 129(L) 134 - 144 mmol/L [facility] 1 Potassium 5.1 3.5 - 5.2 mmol/L [facility] 1 Chloride 93(L) 96 - 106 mmol/L [facility] 1 Anion Gap 10.0 10.0 - 18.0 mmol/L [facility] 1 Carbon Dioxide 26 20 - 29 mmol/L [facility] 1 Calcium 9.3 8.7 - 10.3 mg/dL [facility] 1 Protein, Total 6.9 6.0 - 8.5 g/dL [facility] 1 Albumin 4.3 3.9 - 4.9 g/dL [facility] 1 Globulin 2.6 1.5 - 4.5 g/dL [facility] 1 Bilirubin, Total 0.3 0.0 - 1.2 mg/dL [facility] 1 Alkaline Phosphatase 62 44 - 121 IU/L [facility] 1 AST 20 0 - 40 IU/L [facility] 1 ALT 19 0 - 32 IU/L [facility] 1 Blood Venous blood specimen / Unknown 09/21/2024 10:02 AM EST 09/21/2024 Narrative [facility] 1 - 09/22/2024 12:05 AM EST Performed at: ??01 - [facility] [address] ??[id number] Coal Pulverizer Operator: Kim Johns MD, Phone: ??[phone] Traceejesús Chao [facility] LAB BLOOD ORDERABLES Erna l Result Performing Organization Address City/[facility] Co de Phone Number [facility] 1 * Lipid Panel, Standard (09/21/2024 10:02 AM EST) Cholesterol, Total 168 100 - 199 mg/dL [facility] 1 Triglycerides 38 0 - 149 mg/dL [facility] 1 HDL Cholesterol 82 >39 mg/dL [facility] 1 VLDL Cholesterol Chet 9 5 - 40 mg/dL [facility] 1 LDL Chol Calc (NIH) 77 0 - 99 mg/dL [facility] 1 Blood Venous blood specimen / Unknown 09/21/2024 10:02 AM EST 09/21/2024 Narrative [facility] 1 - 09/22/2024 12:05 AM EST Performed at: ??01 - [facility] [address] ??[id number] Coal Pulverizer Operator: Kim Johns MD, Phone: ??[phone] Tracee Nunezeddi [facility] LAB BLOOD ORDERABLES Erna l Result Performing Organization Address [facility] Co de Phone Number [facility] 1 documented in this encounter Visit Diagnoses Diagnosis Medicare annual wellness visit, initial- Primary Supraventricular tachycardia (CMS/HCC) Other specified cardiac dysrhythmias correction use of drug Screening for osteoporosis Special screening for osteoporosis Primary hypertension Unspecified essential hypertension History of colon cancer Personal history of malignant neoplasm of large intestine Mixed hyperlipidemia Anxiety Anxiety state, unspecified Prediabetes Other abnormal glucose documented in this encounter Additional Health Concerns Assessment Noted Time PHQ-9 Depression Total Score: 2 12/30/19 24 12:57 PM EDT documented as of this encounter Care Teams Dowel Maker Relationship Specialty Start Date End Date Julienne Johnson PA-C PCP - General Family Medicine 09/03/22 documented as of this encounter
--- OUTSIDE RECORDS SUMMARY | 2024-09-28 15:41 | XMS_ITS | Encounter Summary ---
Author Organization [employer] Address [address] [place] [address] [address] [place] [address] Care Team Providers Care Adon Name Role Phone Julienne Johnson PA-C Primary Care Provider Haresh ailable Encounter Details Date Type Department Care Team (Latest Contact Info) Description 09/21/2024 Travel Social History Tobacco Use Types Packs/Day Years [...] your housing situation today? I have lopez kristin 09/21/[address] you li [...] documented as of this encounter Care Teams Adon Relationship Specialty Start Date End Date Julienne Johnson PA-C PCP - General Family Medicine 09/03/22 documented as of this encounter
--- OUTSIDE RECORDS SUMMARY | 2024-09-28 15:41 | XMS_ITS | Clinical Summary ---
Author Organization [facility] Address [address] [place] [address] Care Team Providers Care Plate Hanger Name Role Phone No, Pcp Primary Care Provider Unavailabl e Allergies No known active allergies Medications No known medications Active Problems No known active problems Encounters Date Type Department Care Team Description 09/08/2024 5:46 PM EST - 09/08/2024 8:23 PM EST Emergency [facility] [address] [place] [address] Walter Lewis MD Chest pain, unspecified type (Primary Dx) Discharge Disposition: Home or Self Care from Last 3 Months Social History Tobacco Use Types Packs/Day Years Used Date Smoking Tobacco: Never Assessed Comments Unknown Sex and Gender Information Value Date Recorded Sex Assigned at Not on file Legal Sex Female 3:01 PM EST Gender Identity Not on file Sexual Orientation Not on file Last Filed Vital Signs Vital [...] - - Body Mass Index - - Plan of Treatment Health Maintenance Due Date Last Done Comments Bone Density (DXA) Scan 1960 COLONOSCOPY (CRC) 2004 COLORECTAL CANCER SCREENING (CRC) 2004 CT COLONOGRAPHY (CRC) 2004 FIT-DNA (CRC) 2004 FIT/iFOBT (CRC) 2004 SIGMOIDOSCOPY (CRC) 2004 ZOSTER VACCINE (2 of 2) 07/19/2020 05/24/2020 MAMMOGRAM 03/11/2022 03/11/2020 PNEUMOCOCCAL VACCINE: 65+ YEARS (1 of 1 - PCV) 2024 INFLUENZA VACCINE (#1) 2024 0, 05/24/2020 COVID-19 IMMUNIZATION ( - season) 2024 12/11/2020, 11/27/2020, 11/18/2020 DTAP/TDAP/TD VACCINES (2 - T d or Tdap) 04/13/2029 04/13/2019, 11/06/2009 RSV IMMUNIZATION (1 - 1-dose 75+ series) 2034 IPV VACCINES Aged Out No longer eligi ble based on patient's age to complete this topic MENINGOCOCCAL B VACCINE Aged Out No l onger eligible based on patient's age to complete this topic Procedures Procedure Name Priority Date/Time Associated Diagnosis Comments HS-TNI (2 HR WITH 2 HR DELTA) STAT 09/08/2024 7:09 PM EST D DIMER DEEP VEIN THROMB LEVEL STAT 09/08/2024 6:32 PM EST PHOSPHORUS LEVEL STAT 09/08/2024 3:21 PM EST MAGNESIUM LEVEL, BLOOD STAT 09/08/2024 3:21 PM EST HS-TROPONIN I STAT 09/08/2024 3:21 PM EST CBC WITH DIFF STAT 09/08/2024 3:21 PM EST BASIC METABOLIC PANEL STAT 09/08/2024 3:21 PM EST ECG 12-LEAD STAT 09/08/2024 1:02 PM EST from Last 3 Months Results * hs-TNI (2 hr with 2 hr DELTA) (09/08/2024 7:09 PM EST) Pathologist [facility] hs-TNI 2 hr <3 3 - 14 ng/L 09/08/2024 7:49 PM EST [facility] Blood 09/08/2024 7:09 PM EST 09/08/2024 7:16 PM EST Minesh DOWD LAB BLOOD ORDERABLES Final Result Performing Organization Address City/[facility]/ZIP Co de Phone Number [facility] [address] [place] [address] [place], [place] [id number] * D DIMER DEEP VEIN THROMB LEVEL (09/08/2024 6:32 PM EST) [facility] D Dimer Deep Vein Thromb Level 153 0 - 325 ng/mL D-DU 09/08/2024 7:34 PM EST [facility] Comment: This test has been validated [...] 6:32 PM EST 09/08/2024 7:16 PM EST Minesh DOWD LAB BLOOD ORDERABLES Final Result [facility] [address] [place] [id number] [facility] [address] [place] [id number] * hs-Troponin I (09/08/2024 3:21 PM EST) [facility] hs-Troponin I <3 3 - 14 ng/L 09/08/2024 4:11 PM [facility] 09/08/2024 3:21 PM EST 09/08/2024 3:38 PM EST us Walter Lewis MD LAB BLOOD ORDERABLES Final Result Performing Organization Address [facility]/ZIP Co de Phone Number [facility] [address] [place] [address] [place] [address] * Magnesium Level, Blood (09/08/2024 3:21 PM EST) Magnesium Level, Blood 1.7 1.3 - 1.9 mEq/L 09/08/2024 4:06 PM [facility] Blood 09/08/2024 3:21 PM EST 09/08/2024 3:38 PM EST us Walter Lewis MD LAB BLOOD ORDERABLES Final Result Performing Organization Address [facility] Co de Phone Number [facility] [address] [place] [address] [place] [address] * (ABNORMAL) Basic Metabolic Panel (09/08/2024 3:21 PM EST) Glucose 112(H) 67 - 99 MG/DL 09/08/2024 4:06 PM [facility] BUN 10 6 - 24 MG/DL 09/08/2024 4:06 PM [facility] Creat Level 0.53 0.44 - 1.03 MG/DL 09/08/2024 4:06 PM [facility] eGFR 102 >90 mL/min/1.7 3m exp2 09/08/2024 4:06 PM [facility] Comment:Calculated using the CKD-epi 2020 race-free equation. BUN Creatinine Ratio 19 09/08/2024 4:06 PM [facility] Sodium 129(L) 135 - 145 MEQ/L 09/08/2024 4:06 PM [facility] Potassium 4.0 3.6 - 5.1 MEQ/L 09/08/2024 4:06 PM [facility] Chloride 97(L) 98 - 110 MEQ/L 09/08/2024 4:06 PM [facility] CO2 23 20 - 29 MEQ/L 09/08/2024 4:06 PM [facility] Anion Gap 9 3 - 13 09/08/2024 4:06 PM [facility] Calcium 9.1 8.4 - 10.2 MG/DL 09/08/2024 4:06 PM [facility] Blood 09/08/2024 3:21 PM EST 09/08/2024 3:38 PM EST Walter Lewis MD LAB BLOOD ORDERABLES Final Result [facility] [address] [place] [address] * (ABNORMAL) CBC WITH DIFF (09/08/2024 3:21 PM EST) WBC 6.6 4.2 - 10.0 [id number]/L 09/08/2024 3:50 PM [facility] RBC 4.23 3.80 - 5.10 [id number]/L 09/08/2024 3:50 PM [facility] Hemoglobin 12.8 11.2 - 14.9 g/dL 09/08/2024 3:50 PM [facility] Hematocrit 37.8 36.0 - 48.0 % 09/08/2024 3:50 PM [facility] MCV 89.4 85.2 - 100.2 fL 09/08/2024 3:50 PM [facility] MCH 30.3 27.0 - 32.4 pg 09/08/2024 3:50 PM [facility] MCHC 33.9 29.5 - 34.2 g/dL 09/08/2024 3:50 PM [facility] RDW 13.1 11.8 - 14.4 % 09/08/2024 3:50 PM [facility] Platelets 328 168 - 382 [id number]/L 09/08/2024 3:50 PM [facility] MPV 9.0(L) 9.6 - 12.5 fL 09/08/2024 3:50 PM [facility] NRBC % 0.0 -1.0 - 0.0 % 09/08/2024 3:50 PM [facility] NRBC (absolute) 0.0 n72hre0/L 3:50 PM [facility] Immature Granulocytes % 0.3 % 09/08/2024 3:50 PM [facility] Immature Granulocytes (absolute) 0.0 0.0 - 0.1 [id number]/L 09/08/2024 3:50 PM [facility] Seg Neutrophil % 58.1 % 09/08/19 3:50 PM [facility] Seg Neutrophil (absolute) 3.8 1.9 - 6.7 [id number]/L 09/08/2024 3:50 PM [facility] Lymphocyte % 35.2 % 09/08/2024 3:50 PM [facility] Lymphocyte (absolute) 2.3 1.0 - 3.3 [id number]/L 09/08/2024 3:50 PM [facility] Monocyte % 5.5 % 09/08/2024 3:50 PM [facility] Monocyte (absolute) 0.4 0.3 - 0.9 [id number]/L 09/08/2024 3:50 PM [facility] Eosinophil % 0.6 % 09/08/2024 3:50 PM [facility] Eosinophil (absolute) 0.0 0.0 - 0.4 [id number]/L 09/08/2024 3:50 PM [facility] Basophil % 0.3 % 09/08/2024 3:50 PM [facility] Basophil (absolute) 0.0 0.0 - 0.1 [id number]/L 09/08/2024 3:50 PM [facility] 09/08/2024 3:21 PM EST 09/08/2024 3:38 PM EST Walter Lewis MD LAB BLOOD ORDERABLES Final Result Performing Organization Address [facility]/ZIP Co de Phone Number [facility] [address] [place] [address] [place] [address] * Phosphorus Level (09/08/2024 3:21 PM EST) Phosphorus 2.7 2.4 - 4.8 MG/DL 09/08/2024 4:06 PM EST [facility] Blood 09/08/2024 3:21 PM EST 09/08/2024 3:38 PM EST Walter Lewis MD LAB BLOOD ORDERABLES Final Result Performing Organization Address [facility] Co de Phone Number [facility] [address] [place] [address] [place] [address] * ECG 12 Lead (09/08/2024 1:02 PM EST) RR Interval 652 ms [facility] Atrial Rate 93 ms [facility] P-R Interval 157 ms [facility] P Duration 123 ms [facility] P Horizontal Reeds -14 deg [facility] P Front Reeds 67 deg [facility] QRS Reeds 503 ms [facility] QRSD Interval 106 ms [facility] QT Interval 372 ms [facility] QTcB 461 ms [facility] QTcF 429 ms [facility] QRS Horizontal Reeds -10 deg [facility] QRS Reeds 62 deg [facility] I-40 Horizontal Reeds 25 deg [facility] I-40 Front Reeds 19 deg [facility] T-40 Horizontal Reeds -34 deg [facility] T-40 Front Reeds 122 deg [facility] T Horizontal Reeds -20 deg [facility] T Wave Reeds 20 deg [facility] S-T Horizontal Reeds -39 deg [facility] S-T Front Reeds 57 deg [facility] ECG Impression [...] Protocol ECG ORDERABLES Edited Result - Final [facility] from Last 3 Months Insurance [address] [place] [id number] [place] [address] [id number] [place] [address] Care Teams Plate Hanger Relationship Specialty Start Date End Date No, MD Pricila No Address No [place] [address] PCP - General Internal Medicine 09/08/24
--- OUTSIDE RECORDS SUMMARY | 2024-09-28 15:41 | XMS_ITS | Encounter Summary ---
Author Organization [facility] [employer] [facility] Address [address] [place] [address] [address] [place] [address] Care Team Providers Care Dobie Worker Name Role Phone Julienne Johnson PA-C Primary Care Provider Unav ailable Encounter Details Date Type Department Care Team (Latest Contact Info) Description 09/19/2024 Travel Social History Tobacco Use Types Packs/Day Years Used Date Smoking Tobacco: Never Smokeless Tobacco: Never Alcohol Use Standard Drinks/Week Comments Not Asked 0 (1 standard drink = 0.6 oz pur e alcohol) Wine 1 Depression Answer Date Recorded Patient Health Questionnaire-9 Score 2 12/30/2023 Patient Health Questionnaire-9 Score 2 12/30/2023 Last PHQ-9: Questionnaire Data Not on file 0 12/30/2023 Depression Answer Date Recorded Patient Health Questionnaire-2 Score 1 12/30/2023 Comments Unknown Sex and Gender Information Value [...] documented as of this encounter Care Teams Dobie Worker Relationship Specialty Start Date End Date Julienne Johnson PA-C PCP - General Family Medicine 09/03/22 documented as of this encounter
--- OUTSIDE RECORDS SUMMARY | 2024-09-28 15:41 | XMS_ITS | Clinical Summary ---
Author Organization [facility] Address [address] [place] [address] Care Team Providers Care Farmworker Vegetable Name Role Phone Angela Gallegos Primary Care Provider [phone] Allergies No known active allergies Medications dilTIAZem [...] 09/21/2021 Personal history of colon cancer 09/21/2021 Family History Relation Name Status Comments Father Alive Mother Alive Social History Tobacco Use Types Packs/Day Years [...] Industry Job Start Date Job End Date [employer] M[employer] Not on file Not [...] 09/06/2023 9:22 AM EST Plan of Treatment Health Maintenance Due Date Last Done Comments Cervical Cancer Screening 1960 HIV Screening 1960 HPV and Pap Smear 1960 Hepatitis C Screening 1960 Pap Smear 1960 Osteoporosis Screening 2009 Zoster Vaccines (2 of 2) 07/19/2020 05/24/2020 Pneumococcal Vaccine: 65+ Years (1 of 1 - PCV) 2024 COVID-19 Vaccine ( - season) 2024 09/27/2021, 12/11/2020, 11/27/2020, Additional history exists Influenza Vaccine (#1) 2024 06/21/2020, 2019 Alcohol/Substance Use Screening 08/29/2024 Depression Screening and Follow-Up 08/29/2024 Health Care Proxy Review 08/29/2024 Social Drivers of Health Annual Screening 08/29/2024 Mammogram 10/01/2024 10/01/2022, 02/0 10/2022, 03/11/2020, Additional history exists Colonoscopy 01/05/2026 01/05/2023, 01/05/2023 DTaP,Tdap,and Td Vaccines (2 - Td or Tdap) 04/13/2029 04/13/2019, 11/06/2009 RSV Vaccine (60+ years old and patients) (1 - 1-dose 75+ series) 2034 Hepatitis B Vaccines Aged Out No long er eligible based on patient's age to complete this topic Procedures * Due to [place] Visual[employer] law, this organization might not be sharing negative HIV tests. Procedure Name Priority Date/Time Associated Diagnosis Comments COLONOSCOPY 01/05/2023 from Last 3 Months or Most Recently Relevant to Health Maintenance Results * Due to [place] [employer] law, this organization might not be sharing negative HIV tests. * COLONOSCOPY (01/05/2023) Narrative Procedure Note Jerardo Corrigan MD PhD - 01/05/2023 1:47 PM EDT [facility] Endoscopy - [address] [place] [address] Patient Name: Moon Pierre Procedure Date: 01/05/2023 1:47 PM Date of : 1960 Admit Type: Outpatient Age: 62 Room: [place] [address] Gender: Female Note Status: Addendum Attending MD: Anjum Corrigan MD Procedure: Colonoscopy Indications: High risk colon cancer surveillance: Personal history of coloncancer Providers: Anjum Corrigan MD Referring MD: Requesting Provider: Anglea Gallegos Medicines: Propofol per Anesthesia Complications: No [...] PM This report has been signed electronically. Jerardo Corrigan MD PhD PROVATION PROCEDURES Final Result from Last 3 Months or Most Recently Relevant [id number] [employer] PPO/EPO/IND Care Teams Farmworker Vegetable Relationship Specialty Start Date End Date [place], [place] PCP - General 09/21/21
--- OUTSIDE RECORDS SUMMARY | 2024-09-28 15:41 | XMS_ITS | Clinical Summary ---
Author Organization [employer] Address [address] [place] [address] 7 [place] [address] Care Team Providers Care De Icer Name Role Phone Julienne Johnson PA-C Primary Care Provider Unaruma ailable Allergies No known active allergies Medications * This document contains information received from the source organization and may not represent a complete record from that organization. simvastatin (Zocor) 20 MG tabletIndication s:Hyperlipidemia , unspecified Take 1 tablet (20 mg) by mouth at bedtime. 90 tablet 2 01/16/20 24 025 Active dilTIAZem CD (Cardizem CD) 180 MG 24 hr capsuleIndicatio ns:Essential (primary) hypertension TAKE 1 CAPSULE BY MOUTH IN THE MORNING 90 capsule 1 02/06/20 24 Active lisinopril 10 MG tablet Take 1 tablet (10 mg) by mouth Once per day. 90 tablet 1 09/21/19 25 025 Active hydrOXYzine HCl (Atarax) 25 MG tablet TAKE 1 TABLET BY MOUTH IF NEEDED IN THE MORNING, AT NOON, AND AT BEDTIME FOR ITCHING OR ANXIETY. 270 tablet 1 01/09/20 24 025 Discontinued(Ot her) lisinopril 20 MG tabletIndication s:Essential (primary) hypertension TAKE 1 TABLET BY MOUTH EVERY DAY 90 tablet 1 02/06/20 24 025 Discontinued lisinopril 10 MG tablet Take 1 tablet (10 mg) by mouth Once per day. 90 tablet 1 09/21/19 25 025 Discontinued Active Problems Problem Noted Date Diagnosed Date Prediabetes 08/16/2023 Overview (03/07/2024): A1C 02/2024 5.9% Anxiety 08/15/2023 Overview (12/16/2023): Feels very anxious about health, worried about dying. Has strong fam hx of cancer. Does not follow therapist. Recommended services. History of colon cancer 10/07/2022 Overview (08/15/2023): Diagnosed 2009 s/p colon resection. No chemo radiation. Last colonoscopy 12/2022 q3y Assessment & Plan (10/07/2022 4:18 PM EST): Will refer for sooner GI appt Hyperlipidemia 08/12/2022 Overview (08/15/2023): Lipid panel 08/2022 wnl. Rx statin Component Ref Range & Units 11 mo ago Cholesterol, Total (<200) MG/DL 195 Triglyceride (mg/dL) in Serum/Plasma (<150) MG/DL 47 HDL Cholesterol (>39) MG/DL 91 LDL Cholesterol, Calculated (0-130) MG/DL 95 Non HDL Chol. (LDL+VLDL) (<160) MG/DL 104 Supraventricular tachycardia 08/12/2022 Overview (09/21/2024): Was put on cardizem by cardiology in [place] many years ago. 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; Screening for osteoporosis; Primary hypertension; History of colon cancer; Mixed hyperlipidemia; Anxiety; Prediabetes 09/21/2024 Travel 09/19/2024 Travel from Last 3 Months Immunizations Name Administration Dates Next Due Influenza Injectable Quadriv alant Preservative Free IIV4 MDCK 05/24/2020 Influenza, Unspecified 06/21/2020 Maxi SARS-CoV-2 Vaccination 11/27/2020 Pfizer Covid-19 Vaccine 12+ 12/11/2020, 1 TD (adult), 2 Lf tetanus tox oid, preservative free, adsorbed 11/06/2009 Tdap 04/13/2019 Zoster, Recombinant 05/24/2020 Family History Medical History Relation Name Comments Prostate cancer Brother Colon cancer Maternal Grandmother Heart disease Mother pacemaker Mother Relation Name Status Comments Brother Alive Father Alive Maternal Grandfather Maternal Grandmother Mother Alive Paternal Grandfather Paternal Grandmother Social History Tobacco Use Types Packs/Day Years Used Date Smoking Tobacco: Never Smokeless Tobacco: Never Tobacco Cessation:Counseling Given: Not Answered Alcohol Use Standard Drinks/Week Comments Not Asked [...] Orientation Straight 09/22/2022 1: 26 PM EST Last Filed Vital Signs Vital Sign Reading Time Taken Comments Blood Pressure 110/70 09/21/2024 9:03 AM EST Pulse 80 09/21/2024 9:03 AM EST Temperature 36.6 ??C (97.8 ??F) 09/21/2024 9:03 AM ES T Respiratory Rate 16 09/21/2024 9:03 AM EST Oxygen Saturation 98% 09/03/2022 9:50 AM EST Inhaled Oxygen Concentration - - Weight 54.8 kg (120 lb 12.8 oz) 09/21/2024 9:03 AM EST Height 158.4 cm (5' 2.38 ) 09/21/2024 9:03 AM ES T Body Mass Index 21.83 09/21/2024 9:03 AM EST Plan of Treatment Health Maintenance Due Date Last Done Comments Mammogram 10/01/2024 10/01/2022, 02/26, 03/11/2020 Diabetes: Hemoglobin A1C 03/06/2025 03/06/2024, 07/29 Influenza Vaccine (#1) 2025 06/21/2020, 2019 Postponed from 04/29/2024 (Patient Refused) Pap Smear 09/03/2025 09/03/2022 Alcohol/Substance Use Screening 09/21/2025 09/21/2024 COVID-19 Vaccine ( season) 2025 09/27/2021, 12/11/2020, 11/27/2020, Additional history exists Postponed from 04/29/2024 (Patient Refused) Depression Screening 09/21/2025 09/21/2024, 12/30/19 Pneumococcal Vaccine: 50+ Years (1 of 1 - PCV) 09/21/2025 Postponed from 2009 (Patient Refused) SDOH Screening 09/21/2025 09/21/2024 Tobacco Screening 09/21/2025 09/21/2024 Zoster Vaccines (2 of 2) 09/21/2025 05/24/2020 Pos tponed from 07/19/2020 (Patient Refused) Cervical Cancer Screening 09/03/2027 HPV/Cotest 09/03/2027 09/03/2022 DTaP/Tdap/Td Vaccines (2 - Td or Tdap) 04/13/2029 04/13/2019, 11/06/2009 Lipid Panel 09/21/2029 09/21/2024, 07/04/2024, 08/15/2023, Additional history exists RSV Patients and Patients Aged 60 years or older (1 - 1-dose 75+ series) 2034 Colonoscopy Discontinued 04/01/2017, 02/28/2014 Colorectal Cancer Screening Discontinued Hepatitis C Screening Completed 04/07/2018 CT Colonography Discontinued FIT DNA/Cologuard Discontinued FIT Discontinued FOBT Discontinued HIB Vaccines Aged Out No longer eligi ble based on patient's age to complete this topic HPV Vaccines Aged Out No longer eligi ble based on patient's age to complete this topic Hepatitis A Vaccines Aged Out No long er eligible based on patient's age to complete this topic Hepatitis B Vaccines Aged Out No long er eligible based on patient's age to complete this topic IPV Vaccines Aged Out No longer eligi ble based on patient's age to complete this topic Meningococcal Vaccine Aged Out No mary lynn eligible based on patient's age to complete this topic RSV under 20 months Aged Out No longe r eligible based on patient's age to complete this topic Rotavirus Vaccines Aged Out No longer eligible based on patient's age to complete this topic Sigmoidoscopy Discontinued Procedures Procedure Name Priority Date/Time Associated Diagnosis Comments COMPREHENSIVE METABOLIC PANEL Routine 09/21/2024 10:02 AM EST 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[phone] Tracee Chao [facility] LAB BLOOD ORDERABLES Erna l Result [facility] 1 * (ABNORMAL) Comprehensive metabolic panel (09/21/2024 10:02 [...] 12:05 AM EST Performed at: ??01 - [facility] ??[id number] Director Erp: Kim Johns MD, Phone: ??[phone] Tracee Chao [facility] LAB BLOOD ORDERABLES Erna jada Result [facility] * (ABNORMAL) Hemoglobin A1c (03/06/2024 9:10 AM EDT) Pathologist [facility] Hemoglobin A1c 5.9(H) 4.8 - 5.6 % [facility] Comment: ? Prediabetes: 5.7 - 6.4 ? Diabetes: >6.4 ? Glycemic control for adults with diabetes: <7.0 Blood Venous blood specimen / Unknown 03/06/2024 9:10 AM EDT 03/06/2024 Narrative [facility] 1 - 03/07/2024 12:05 AM EDT Performed at: ??01 - [facility] [address] ??[id number] Director Erp: Kim Johns MD, Phone: ??[phone] Julienne Johnson PA-C LAB BLOOD ORDERABLES Final Result [facility] * PAP, LB with CT/GC and HPV (09/03/2022 12:55 AM EST) PAP, LB WITH CT/GC AND HPV Patient Name: BRIA PETERSON [facility] Comment: Patient : ?[id number] (Age: 62) Lab Accession #: ? [id number] Collection Date: ? 09/03/2022 Accession Date: ? 09/04/2022 Sign Out Date: ? 09/14/2022 Tissue Source: 1: THINPREP SHALLOT CLEANER PAP TEST, CERVICAL: Final Diagnosis: NEGATIVE FOR INTRAEPITHELIAL LESION OR MALIGNANCY. Satisfactory for evaluation. ??Endocervical/transformation zone present. Procedures/Addenda: Human Papilloma Virus, High-Risk (Any Dx) ? Status: Signed Out Interpretation: Negative Methodology: HipClub Aptima HPV mRNA assay (Nucleic Acid Amplification Test, NAAT). Clinical History: Date of Last Menstrual Period: ?? not available Menstrual History: ?? not available Contraceptive History: ??not available Ancillary Testing: ??HPV (any dx) Case imaged by the ThinPrep Imaging System with manual rescreening or review. Clinical History (other): ??Z12.4 Phone #: ??[phone], On-Call Pathologist: ??[id number] Testing performed or reported by [facility], a Service of [facility], [address] [place] [id number] Nicole Chong MD, Director Of Safety And Security [facility]# [id number] 09/03/2022 12:5 5 AM EST 09/04/2022 7:39 AM EST Julienne Johnson PA-C LAB CYTOLOGY ORDERABLES Fin al Result [facility] [address] [place] [address] * BI MAMMOGRAM SCREENING WITH TOMOSYNTHESIS WITH CAD (BILATERAL) (03/11/2020 3:10 PM EDT) Anatomical Region Laterality Modality Breast Bilateral Mammography 03/11/2020 3:10 PM EDT Narrative 03/12/2020 3:16 PM EDT Refer to [facility] for result details [facility] Procedure: BI MAMMOGRAM SCREENING WITH TOMOSYNTHESIS WITH CAD (BILATERAL) Procedure Note ProviderRickie MD - 11/20/2022 Refer to [facility] for result details [facility] Procedure: BI MAMMOGRAM SCREENING WITH TOMOSYNTHESIS WITH CAD(BILATERAL) Historical Provider IMG BI PROCEDURES Final R esult * Hepatitis C Antibody (04/07/2018 3:44 PM EDT) Hepatitis C Antibody Nonreactive Blood 04/07/2018 3:44 PM EDT Historical Provider POINT OF CARE TEST ENTER/ EDIT ORDERABLES Final Result * COLONOSCOPY: DARRICK YOUNG MD (04/01/2017 12:00 AM EDT) Anatomical Region Laterality Modality Endoscopy 04/01/2017 Narrative 04/01/2017 12:00 AM EDT Refer to [facility] for result details [facility] Procedure: COLONOSCOPY: DARRICK OYUNG MD Procedure Note ProviderRickie MD - 12/23/2022 Refer to [facility] for result details [facility] Procedure: COLONOSCOPY: DARRICK YOUNG MD Historical Provider ENDOSCOPY PROCEDURE ORDER SWATI Final Result from Last 3 Months or Most Recently Relevant to Health Maintenance Insurance [employer] MEDICARE REPLACEMENT MEDICARE Care Teams De Icer Relationship Specialty Start Date End Date Julienne Johnson PA-C PCP - General Family Medicine 09/03/22
--- OUTSIDE RECORDS SUMMARY | 2024-09-28 15:41 | XMS_ITS | Encounter Summary ---
Author Organization [employer] Address [address] [place] [address] [address] [place] [address] Care Team Providers Care Acute Care Certified Nursing Assistant Name Role Phone Julienne Johnson PA-C Primary Care Provider Haresh ailable Encounter Details Date Type Department Care Team (Late st Contact Info) Description 09/25/2024 Telephone Carine [facility] [address] [place], [place] [id number] Tracee Chao FNP [address] [place] [address] Social History Tobacco Use Types Packs/Day Years [...] is your housing situation today? I have lopezgilles foster 09/21/[address] you [...] encounter Miscellaneous Notes * Telephone Encounter - MARY Dixon - 09/25/2024 9:48 AM EST Noted * Telephone Encounter - Amy Lopez LPN - 09/25/2024 9:36 AM EST Call placed to patient. Provider message given. Patient states she feels perfectly fine, no symptoms noted. Patient is hydrating well and has increased her sodium intake. Patient in agreement for repeat labs on Tuesday. Encounter to provider as update. * Telephone Encounter - MARY Dixon - 09/25/2024 9:18 AM EST Please call Moon- her sodium and chloride are a bit low, is she hydrating well? How is she feeling overall, I would like her to get her labs drawn on Tuesday if possible? documented in this encounter Plan of Treatment Pending Results Name Type Priority Associated Diagnoses Date /Time Basic metabolic panel Lab Routine Hyponatremia 09/28/2024 7:45 AM EST Scheduled Orders Name Type Priority Associated Diagnoses Orde r Schedule Basic metabolic panel Lab Routine Hyponatremia Expected: 09/25/2024 (Approximate), Expires: 09/25/2025 documented as of this encounter Visit Diagnoses Diagnosis Hyponatremia- Primary Hyposmolality and/or hyponatremia documented in this encounter Additional Health Concerns Assessment Noted Time PHQ-9 Depression Total Score: 2 12/30/19 24 12:57 PM EDT documented as of this encounter Care Teams Acute Care Certified Nursing Assistant Relationship Specialty Start Date End Date Julienne Johnson PA-C PCP - General Family Medicine 09/03/22 documented as of this encounter
[2024-09-28 16:17] LABS: Influenza A PCR NEGATIVE (Negative); Influenza B PCR NEGATIVE (Negative); Resp Syncy Virus RNA Qual PCR NEGATIVE (Negative); SARS COV2 PCR INHOUSE NEGATIVE (Negative)
[2024-09-28 17:09] LABS: Troponin-I High Sensitivity < 2.7 ng/L (<3.5-17.0)
[2024-09-28 17:27] VITALS: BP 142/88; PULSE 73; RESP 16; TEMP 36; O2SAT 98
[2024-09-28 17:47] VITALS: BP 142/88; PULSE 73; RESP 16; TEMP 36; O2SAT 98
== END 2024-09-28 17:48 | disposition home or self-care (01) ==
PROVIDERS: Physician Assistant; Physician Assistant Medical; Emergency Provider Emergency Medicine; PCP Nurse Practitioner Family
DX: R07.89 Other chest pain (principal); R42 Dizziness and giddiness; F41.9 Anxiety disorder, unspecified; R11.0 Nausea; Z03.818 Encounter for observation for suspected exposure to other biological agents ruled out; Z79.899 Other long term (current) drug therapy
CPT/HCPCS: 0241U; 36415; 71046; 80048; 80076; 84484; 85025; 85610; 93005; 99283; 99285

== ENCOUNTER → 2024-09-28 11:00 | Outpatient (BNV) | payer MEDICARE, SELFPAY | PROVIDERS: Emergency Provider Emergency Medicine; PCP Nurse Practitioner Family; Visit Provider Internal Medicine | DX: R55 Syncope and collapse (principal) | CPT/HCPCS: 93010 ==

== ENCOUNTER → 2024-09-28 11:05 | Outpatient (BNV) | payer SELFPAY | PROVIDERS: PCP Nurse Practitioner Family; Visit Provider Radiology Diagnostic Radiology | DX: R07.9 Chest pain, unspecified (principal) | CPT/HCPCS: 71046 ==